=== PATIENT | male | born 1960 | race Caucasian/White ===

== ENCOUNTER → 2021-06-25 | Outpatient (CLI) | payer MEDICAID ==
[~2021-06-25] VITALS: Ht 180.3 cm; Wt 95.3 kg
[~2021-06-25] MED LIST: ALDACTONE 100M100 MG PO; CENTRUM SILVER1 CTB PO; ELIQUIS 5MG PO; KLONOPIN 1MG1 MG PO; LASIX 40MG TABL40 MG PO; SYNTHROID0.075 MG/T PO
[2021-06-25 09:07] VITALS: BP 99/63; PULSE 69; TEMP 98.4
--- NOTE | 2021-06-25 09:30 | NUR ---
Dr Carter notified of PT/INR. Dr Carter states we are unable to do the biopsy due to levels. 944 Dr Carter into talk with pt regarding procedure. Pt rescheduled to a later date. 954 Pt dressed and INT removed with catheter tip intact. Pt out to car ambulatory.
[2021-06-25 09:33] LABS: INR 1.5 (0.8-3.0); PROTHROMBIN TIME 16.7 SECONDS (9.7-12.8)
== END ==
LOC: COL.RAD 08:34
PROVIDERS: Internal Medicine Gastroenterology
DX: K76.0 Fatty (change of) liver, not elsewhere classified (principal); R18.8 Other ascites; R74.8 Abnormal levels of other serum enzymes

== ENCOUNTER → 2021-07-12 | Outpatient (CLI) | payer MEDICAID ==
[~2021-07-12] VITALS: Ht 180.3 cm; Wt 93.5 kg
[2021-07-12] VITALS (11 sets, daily range): BP systolic 100–126; BP diastolic 62–659; PULSE 60–70; TEMP 98.5
[2021-07-12 09:53] LABS: INR 1.4 (0.8-3.0); PROTHROMBIN TIME 15.5 SECONDS (9.7-12.8)
== END ==
LOC: COL.RAD 09:00
PROVIDERS: Internal Medicine Gastroenterology
DX: K76.0 Fatty (change of) liver, not elsewhere classified (principal); R60.0 Localized edema

== ENCOUNTER 2022-03-11 09:00 | Day surgery (SDC) | payer MEDICAID ==
[~2022-03-11] VITALS: Ht 180.3 cm; Wt 91.9 kg
[2022-03-11 09:29] VITALS: BP 102/69; PULSE 63; TEMP 98.3
[2022-03-11 10:35] VITALS: BP 104/69; PULSE 62; TEMP 97.9
[2022-03-11 10:50] VITALS: BP 104/72; PULSE 66
[2022-03-11 11:05] VITALS: BP 102/69; PULSE 67
--- NOTE | 2022-03-11 11:15 | NUR ---
1035: Patient arrived back into [facility] following endo procedure. Report received from Alexus. Patient alert and awake. Requesting water and muffin. Vital signs stable. Call light left within reach. 1050: Patient continues to do well. Tolerating food and drink well. 1055: MD in to see patient. Questions answered. 1105: Patient tolerated food and drink well. Meets discharge criteria went through discharge instructions with patient and family. Questions answered. IV removed without complications. Patient escorted to patient entrance via wheelchair and left in the care of their family.
== END 2022-03-11 11:10 | disposition home or self-care (01) ==
LOC: SDCO 09:00
DX: I85.00 Esophageal varices without bleeding (principal); K70.31 Alcoholic cirrhosis of liver with ascites; K25.7 Chronic gastric ulcer without hemorrhage or perforation; R60.0 Localized edema; R79.89 Other specified abnormal findings of blood chemistry; F17.210 Nicotine dependence, cigarettes, uncomplicated
CPT/HCPCS: J2704; J7030